=== PATIENT | male | born 1960 | race Caucasian/White ===

== ENCOUNTER 2019-04-17 06:06 | Emergency (ER) | payer OTHER ==
[2019-04-17] MEDS ORDERED: Ondansetron 4 MG/2 ML SDV IVPUSH ONE (06:57)
[2019-04-17] MEDS ORDERED: HYDROmorphone 1 MG/ML Syringe IVPUSH STA (06:57)
[2019-04-17] MEDS ORDERED: Sodium Chloride 0.9% 1,000 ML IV SCH (07:00)
--- NOTE | 2019-04-17 07:05 | EDM.PDOC ---
<Janes Barrow - Last Filed: 04/17/19 07:53> ED HPI GENERAL MEDICAL PROBLEM - General Chief Complaint: Gastrointestinal Problem Stated Complaint: UNABLE TO HAVE A BOWEL MOVEMENT Time Seen by Provider: 04/17/19 06:15 Source of Information: Reports: Patient, Family () History Limitations: Reports: No Limitations - History of Present Illness INITIAL COMMENTS - FREE TEXT/NARRATIVE: Mr. Perales is a pleasant 58-year-old man with a past medical history significant for GERD, arthritis, and Crohn disease, who presents to the ED with his due to central abdominal cramps and bloating since 18:30 last night. Initially, his pain came and went about every 20 minutes, but over the past few hours, it has been more constant. He vomited once at 03:00, then a second time during my interview. He had a bowel movement here in the ED, which helped, briefly, although he feels like he needs to have another bowel movement. He is under the impression that his symptoms are due to constipation, although he acknowledges that his last bowel movement, prior to the one he had here in the ED, was yesterday afternoon. The patient underwent a small bowel resection (likely of the terminal ileum) in 1994, but no Crohn-related surgeries since. He reports similar symptoms about 20 times since 1994. He states that he has never sought medical evaluation for his symptoms, ever. He states that his symptoms usually resolve on their own, but that this time, his symptoms are worse than ever before. The patient did not take any [id number] or home remedies prior to coming to the ED. The patient's PCP is Dr. Caleb Richardson. His Die Grinder is Dr. Tommy Sebastian. The patient states that he sees Dr. Phill Lee, a Plastic Surgeon, for testosterone injections. He received an influenza vaccine this season. Abdomen Pain Score (Numeric/FACES): 8 - Related Data Allergies Allergy/AdvReac Type Severity Reaction Status Date / Time azathioprine [From Imuran] Allergy Nausea and Verified 04/17/19 06:19 Vomiting Home Meds: Home Meds Calcium Carbonate/Vitamin D3 [Calcium 1,000 + D3 Caplet] 1 tab PO BID 03/03/18 [ History] Cholestyramine/Aspartame [Cholestyramine Light Powder] 4 gr PO BEDTIME 03/03/18 [History] Ferrous Sulfate [Iron] 325 mg PO DAILY 03/03/18 [History] Folic Acid 1 mg PO DAILY 03/03/18 [History] Mesalamine [Pentasa] 500 mg PO QID 03/03/18 [History] RABEprazole Sodium [Aciphex] 20 mg PO DAILY 03/03/18 [History] InFLIXimab [Remicade] 600 mg IV ASDIRECTED 04/17/19 [History] [id number]/Sod Sul/NaCl/KCl/Asb/C [Plenvu Powder Packets] 140 mg PO DAILY 04/17/19 [History] Past Medical History Gastrointestinal History: Reports: GERD, Inflammatory Bowel Disease (Crohn disease) Musculoskeletal History: Reports: Arthritis Endocrine/Metabolic History: Reports: Obesity/BMI 30+ - Past Surgical History GI Surgical History: Reports: Appendectomy, Hernia, Abdominal (periumbilical), Small Bowel Social & Family History - Tobacco Use Smoking Status *Q: Former Smoker Years of Tobacco use: 17 Packs/Tins Daily: 1 Month/Year Tobacco Last Used: Quit 1992 - Caffeine Use Caffeine Use: Reports: None - Alcohol Use Alcohol Use History: Yes Alcohol Use Frequency: Socially - Recreational Drug Use Recreational Drug Use: No - Living Situation & Occupation Living situation: Reports: , with Spouse 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 ED EXAM, GI/ABD - Physical Exam Exam: See Below Exam Limited By: No Limitations General Appearance: Alert, WD/WN, Mild Distress (Vomited iin ED) Eyes: Bilateral: Normal Appearance, EOMI Ears: Normal External Exam, Hearing Grossly Normal Nose: Normal Inspection Throat/Mouth: Normal Inspection, Normal Lips, Normal Voice, No Airway Compromise Head: Atraumatic, Normocephalic Neck: Normal Inspection, Full Range of Motion Respiratory/Chest: No Respiratory Distress, Lungs Clear, Normal Breath Sounds, No Accessory Muscle Use Cardiovascular: Normal Peripheral Pulses, Regular Rate, Rhythm, No Edema, No Gallop, No JVD, No Murmur, No Rub GI/Abdominal Exam: Soft, No Organomegaly, No Distention, No Abnormal Bruit, No Mass, Tender (mild, central only, nontender elsewhere), Abnormal Bowel Sounds ( absent bowel sounds) (Male) Exam: Deferred Rectal (Males) Exam: Deferred Back Exam: Normal Inspection, Full Range of Motion. No: CVA Tenderness (L), CVA Tenderness (R) Extremities: Normal Inspection, Normal Range of Motion, No Pedal Edema, Normal Capillary Refill Neurological: Alert, Oriented, Normal Cognition, No Motor/Sensory Deficits Psychiatric: Normal Affect Skin Exam: Warm, Dry, Intact, Normal Color, No Rash Course - Vital Signs Last Recorded V/S: Last Vital Signs Temp 97.7 F 04/17/19 06:15 Pulse 87 04/17/19 12:16 Resp 20 04/17/19 06:15 BP 145/79 H 04/17/19 12:16 Pulse Ox 90 L 04/17/19 12:16 - Orders/Labs/Meds Orders: Active Orders 24 hr Category Date Time Status Lactated Ringers [Ringers, Lactated] 1,000 ml Med 04/17/19 12:45 Active IV ASDIRECTED Sodium Chloride 0.9% [Normal Saline] 1,000 ml Med 04/17/19 07:00 Active IV ASDIRECTED Sodium Chloride 0.9% [Saline Flush] Med 04/17/19 08:23 Active 10 ml FLUSH ONETIME PRN NG [Nasogastric Orogastric Tube Insertion] [OM.PC] Oth 04/17/19 10:56 Ordered Routine Medication Orders Sodium Chloride (Normal Saline) 1,000 mls @ 150 mls/hr IV ASDIRECTED [place] Last Admin: 04/17/19 07:17 Dose: 150 mls/hr Lactated Ringer's (Ringers, Lactated) 1,000 mls @ 150 mls/hr IV ASDIRECTED [place] Last Admin: 04/17/19 12:53 Dose: 150 mls/hr Sodium Chloride (Saline Flush) 10 ml FLUSH ONETIME PRN PRN Reason: IV FLUSH Last Admin: 04/17/19 08:25 Dose: 10 ml Labs: Laboratory Tests 04/17/19 04/17/19 Range/Units 07:02 07:02 WBC 18.05 H (4.23-9.07) K/mm3 RBC 6.76 H (4.63-6.08) M/mm3 Hgb 20.4 H (13.7-17.5) gm/dl Hct 59.6 H (40.1-51.0) % MCV 88.2 (79.0-92.2) fl MCH 30.2 (25.7-32.2) pg MCHC 34.2 (32.2-35.5) g/dl RDW Std Deviation 46.8 H (35.1-43.9) fL Plt Count 380 H (163-337) K/mm3 MPV 10.1 (9.4-12.3) fl Neutrophils % (Manual) 88 H (40-60) % Band Neutrophils % 0 (0-10) % Lymphocytes % (Manual) 5 L (20-40) % Atypical Lymphs % 0 % Monocytes % (Manual) 7 (2-10) % Eosinophils % (Manual) 0 L (0.8-7.0) % Basophils % (Manual) 0 L (0.2-1.2) Platelet Estimate Adequate RBC Morph Comment Normal Sodium 135 L (136-145) mEq/L Potassium 4.4 (3.5-5.1) mEq/L Chloride 97 L (98-107) mEq/L Carbon Dioxide 25 (21-32) mEq/L Anion Gap 17.4 H (5-15) BUN 17 (7-18) mg/dL Creatinine 1.6 H (0.7-1.3) mg/dL Est Cr Clr Drug Dosing 51.96 mL/min Estimated GFR (MDRD) 45 (>60) mL/min BUN/Creatinine Ratio 10.6 L (14-18) Glucose 174 H (74-106) mg/dL Calcium 10.2 H (8.5-10.1) mg/dL Total Bilirubin 0.6 (0.2-1.0) mg/dL AST 35 (15-37) U/L ALT 56 (16-63) U/L Alkaline Phosphatase 97 (46-116) U/L Total Protein 9.8 H (6.4-8.2) g/dl Albumin 4.2 (3.4-5.0) g/dl Globulin 5.6 gm/dL Albumin/Globulin Ratio 0.8 L (1-2) Meds: Medications Generic Name Dose Route Start Last Admin Trade Name Freq PRN Reason Stop Dose Admin Sodium Chloride 1,000 mls @ 150 mls/hr 04/17/19 07:00 04/17/19 07:17 Normal Saline IV 150 mls/hr ASDIRECTED [place] Administration Lactated Ringer's 1,000 mls @ 150 mls/hr 04/17/19 12:45 04/17/19 12:53 Ringers, Lactated IV 150 mls/hr ASDIRECTED [place] Administration Sodium Chloride 10 ml 04/17/19 08:23 04/17/19 08:25 Saline Flush FLUSH 10 ml ONETIME PRN Administration IV FLUSH Discontinued Medications Generic Name Dose Route Start Last Admin Trade Name Lisa PRN Reason Stop Dose Admin Diatrizoate Meglum/Diatrizoate Sod 120 ml 04/17/19 08:23 04/17/19 08:26 Gastrografin 37% PO 04/17/19 08:24 90 ml ONETIME ONE Administration Hydromorphone HCl 1 mg 04/17/19 06:57 04/17/19 07:19 Dilaudid IVPUSH 04/17/19 06:58 1 mg ONETIME STA Administration Iopamidol 100 ml 04/17/19 08:23 04/17/19 08:25 Isovue-300 (61%) IVPUSH 04/17/19 08:24 100 ml ONETIME ONE Administration Ondansetron HCl 4 mg 04/17/19 06:57 04/17/19 07:17 Zofran IVPUSH 04/17/19 06:58 4 mg ONETIME ONE Administration - Re-Assessments/Exams Free Text/Narrative Re-Assessment/Exam: 04/17/19 07:00 The patient's history and physical examination are highly concerning for a small bowel obstruction. I have ordered blood work and a CT scan of his abdomen and pelvis with oral and IV contrast. In the meantime, the patient will be treated with IV Dilaudid, IV Zofran, and IV fluid. 04/17/19 07:[address] Matthieu Figueroa, and care of the patient turned over to him at this time, for change of shift. Departure - Departure Disposition: DC/Tfer to [facility] 02 Clinical Impression: Small bowel obstruction Crohn's disease Qualifiers: Gastrointestinal tract location: small intestine Digestive disease complication type: without complication Qualified Code(s): K50.00 - Crohn's disease of small intestine without complications - Discharge Information Referrals: PCP,None [Ordering Only Provider] - Forms: ED Department Discharge Sepsis Event Note - Evaluation Sepsis Screening Result: No Definite Risk - Focused Exam Vital Signs: Vital Signs Temp Pulse Resp BP Pulse Ox 04/17/19 12:16 87 145/79 H 90 L 04/17/19 06:15 97.7 F 60 20 165/86 H 95 Date Exam was Performed: 04/17/19 Time Exam was Performed: 07:53 - My Orders Last 24 Hours: My Active Orders 04/17/19 08:23 Sodium Chloride 0.9% [Saline Flush] 10 ml FLUSH ONETIME PRN 04/17/19 10:56 NG [Nasogastric Orogastric Tube Insertion] [OM.PC] Routine 04/17/19 12:45 Lactated Ringers [Ringers, Lactated] 1,000 ml IV ASDIRECTED - Assessment/Plan Last 24 Hours: My Active Orders 04/17/19 08:23 Sodium Chloride 0.9% [Saline Flush] 10 ml FLUSH ONETIME PRN 04/17/19 10:56 NG [Nasogastric Orogastric Tube Insertion] [OM.PC] Routine 04/17/19 12:45 Lactated Ringers [Ringers, Lactated] 1,000 ml IV ASDIRECTED <Ezio Figueroa L - Last Filed: 04/17/19 13:21> Course - Re-Assessments/Exams Free Text/Narrative Re-Assessment/Exam: 04/17/19 08:00. Have assumed care from Dr Barrow. I have also examined and interviewed patient. I agree with his hx and exam as tolerated. Just had a dose of dilaudid a short time ago so not much pain at this time. Awaiting labs and C 08:50. WBC elevated at around 18,00 with L shift. Awaiting Radiologist report on CT. 04/17/19 11:00 CT radiology report is back showing diffuse small bowel dilatation mostly containing fluid with transition point right lower abdomen. There is slight bowel wall thickening seen at the transition point. Findings compatible with distal small bowel obstruction. See radiology report for details. NGTube has been ordered. Patient is requesting transferred to [facility] where he does Dr. with Dr. Sebastian GI and his nurse practitioner. 04/17/19 11:18 I've called [facility], They are on diversion, not sure if they can accept this transfer or not, they're going to better check bed status and get back to us. 04/17/19 11:53. They do have beds becoming available. Have discussed with Dr Khalil, Hospitalist sustainable design consultant does accept patient in transfer. He is not actively vomiting so will continue to hold on NG tube placement for now. He will be transfered by ground ambulance. Departure - Departure Time of Disposition: 11:53 Condition: Fair Sepsis Event Note - Focused Exam Date Exam was Performed: 04/17/19 Time Exam was Performed: 13:18
[2019-04-17] MEDS ORDERED: Diatrizoate Meglumine/Diatrizoate Sodium 37% 120 ML Bottle PO ONE (08:23)
[2019-04-17] MEDS ORDERED: Sodium Chloride 0.9% 10 ML Syringe FLUSH PRN (08:23)
[2019-04-17] MEDS ORDERED: Iopamidol 612 MG/ML 100 ML Bottle IVPUSH ONE (08:23)
--- NOTE | 2019-04-17 10:06 | CT ---
CT abdomen and pelvis Technique: Multiple axial sections were obtained from above the dome of the diaphragm inferiorly through the pubic symphysis. Intravenous contrast was utilized. Oral contrast was given which remains within the stomach. Delayed images were also obtained through the bladder. Findings: Visualized lung bases show nothing acute. Small low-density lesion is noted within the left lobe of the liver measuring 6 mm. This is too small to characterize but most likely is due to a small cyst since no other abnormality is seen within the liver. Spleen appears within normal limits. Adrenal glands show no nodule. Pancreas is within normal limits. Kidney show symmetric contrast enhancement. No hydronephrosis is seen. Exophytic cyst noted off the mid left kidney measuring 2.3 cm. Small cyst is noted off the right kidney measuring 7 mm. Aorta shows no aneurysm. No retroperitoneal adenopathy is seen. No mesenteric abnormalities are seen. Diverticuli are seen within the sigmoid and descending colon without diverticulitis. Delayed images show contrast within the distal ureters and within the bladder. Diffuse small bowel dilatation is seen containing fluid. Transition point appears within the right lower abdomen. There is slight bowel wall thickening being seen at the transition point. Appendix is not visualized. No additional abnormality is appreciated. Bone window settings were reviewed which show no acute osseous finding. Impression: 1. Findings compatible with distal small bowel obstruction. Transition point to nondilated bowel occurs in the right lower abdomen. As mentioned above, there is an area of bowel wall thickening in this area of transition. Uncertain if findings represent enhancing scarring or represents a small focus of neoplastic involvementl. 2. Other nonacute findings as noted above. Diagnostic code #5 This report was dictated in [place] Standard Time
[2019-04-17] MEDS ORDERED: Lactated Ringers 1,000 ML IV SCH (12:45)
== END 2019-04-17 13:40 ==
LOC: JD.ED 06:06
DX: K50.00 Crohn's disease of small intestine without complications (principal); K21.9 Gastro-esophageal reflux disease without esophagitis; E66.9 Obesity, unspecified; Z68.30 Body mass index [BMI] 30.0-30.9, adult; Z79.899 Other long term (current) drug therapy; Z87.891 Personal history of nicotine dependence
CPT/HCPCS: 36415; 74177; 80053; 85007; 85027; 96361; 96374; 96375; 99285; J1170; J2405; J7030; J7120; Q9963; Q9967